=== PATIENT | male | born 1960 | race Caucasian/White ===

== ENCOUNTER 2017-06-01 09:16 | Observation (INO) | payer BC ==
[2017-06-01] VITALS (12 sets, daily range): BP systolic 126–153; BP diastolic 77–102; PULSE 58–75; TEMP 36.4–36.5; O2SAT 95–98; Ht 167.6 cm; Wt 90.8 kg
[~2017-06-01] VITALS: Ht 167.6 cm; Wt 90.8 kg
[2017-06-01] MEDS ORDERED: MIDAZOLAM HCL 1 MG/ML 2ML VIAL ONE (13:43)
[2017-06-01] MEDS ORDERED: HEPARIN SOD (PORCINE) 1000 UNIT/ML 10 ML VIAL ONE ×2 (13:43→15:25)
[2017-06-01] MEDS ORDERED: NiCARDipine HCL INJ 2.5 MG/ML 10 ML AMP ONE (13:43)
[2017-06-01] MEDS ORDERED: FENTANYL CITRATE INJ 50 MCG/1 ML 2 ML VIAL ONE (13:43)
[2017-06-01] MEDS ORDERED: NITROGLYCERIN/D5W 100MCG/ML 20ML SYR ONE (13:44)
--- NOTE | 2017-06-01 15:13 | Procedure Note ---
Pre-Mod Sedation Assessment General Date of Moderate Sedation: Jun 01, 2017. Vital Signs: Vital Signs Past 12 Hours Date Time Temp Pulse Resp B/P (MAP) Pulse Ox O2 Delivery O2 Flow Rate FiO2 06/01/17 09:35 36.5 75 16 153/102 97 Room Air Review Cardiovascular: regular rate, rhythm, no edema, no gallop, no JVD, no murmur Abdomen: normal bowel sounds, non tender, soft Lungs: chest non-tender, lungs clear Pre-Sedation Airway Assessment Oral Cavity: WNL Short Thick Neck: No Hx of Sleep Apnea: No Smoking Status: Never Smoker Mallampati Classification: Class III ASA Classification: Class III Procedure Planning Contraindications-for Mod Sed: None Yes Notes The planned sedation has been discussed with the patient and consent obtained. I have identified the patient, determined the appropriateness of sedation and have assessed the patient immediately prior to the procedure. All medicine(s) and interventions are by my order.
--- NOTE | 2017-06-01 15:14 | History & Physical Bridge Note ---
H&P Re-Evaluation Bridge Note: I have examined the patient, reviewed the History & Physical and in the interval since the performance of the History & Physical I have noted the following changes of clinical significance: No changes noted
--- NOTE | 2017-06-01 15:16 | Procedure Note ---
Post-Mod Sedation Assessment General Date of Moderate Sedation Jun 01, 2017. Vital Signs: Vital Signs Past 12 Hours Date Time Temp Pulse Resp B/P (MAP) Pulse Ox O2 Delivery O2 Flow Rate FiO2 06/01/17 09:35 36.5 75 16 153/102 97 Room Air Review - Discharge Criteria Vital Signs Stable: Yes Alert/Oriented/Conversant: Yes Returned to Baseline Mental St: Yes Nausea Absent/Minimal: Yes Pain/Discomfort/Absent/Minimal: Yes Normal/Baseline Respirations: Yes Active Bleeding?: No Pt Received D/C Instructions: N/A Prescriptions Given: None Specific Proced. D/C Criteria Distal Pulses Present (Cardiac: Yes Groin site assessed-Card Cath: N/A Voided Prior To Discharge: N/A Discharged Patients Adult Escort/Transportation: N/A
[2017-06-01] MEDS ORDERED: CLOPIDOGREL BISULFATE 300 MG TAB PO ONE (15:29)
[2017-06-01] MEDS ORDERED: NITROGLYCERIN 0.4 MG SL PER TAB CHARGE SL PRN (16:00)
[2017-06-01] MEDS ORDERED: ACETAMINOPHEN 325 MG TAB PO PRN (16:00)
[2017-06-01] MEDS ORDERED: IV FLUIDS COMPLETED PRN (16:00)
[2017-06-01] MEDS ORDERED: SODIUM CHLORIDE 0.9% 1000ML 1,000 ML IV SCH (16:00)
--- NOTE | 2017-06-01 16:15 | Cardiac Catheterization ---
Procedure Note Procedure Date Jun 01, 2017. Pre-Procedure Diagnosis Angina, Positive Stress Test, CAD AUC Score 8 Post-Procedure Diagnosis Severe CAD Procedure(s) Performed Coronary Angiography, Left Heart Cath Gas Main Fitter Dr. Garland Morphologist(s) Rob RTR Estimated Blood Loss 8cc Medication(s) Fentanyl, Heparin, Nicardipine, Nitroglycerin, Versed, Lidocaine 1% Summary of Findings 70% LAD in stent restenosis Anuerysmal Lcx segment with 60 -70% stenosis Moderate diffuse RCA stenosis 40% Hemodynamics Rest Ao: 112/69/90 Final Ao: 121/65/88 LV: 121/6/11 Recommendations PCI without planned CABG (Lcx poor target for PCI. Plan to proceed with PCI of LAD. Medical management of Lcx. Consider intervention with recurrent symptoms. ) Specimens None Radiation Exposure (mGy) 1837 Contrast (mls) 65 Procedural Complication(s) None Disposition tag and label cutter for PCI LAD ACC Data Cardiac Status Clinical evaluation leading to the procedure CAD Presntation: Positive Stress Test Anginal Classification: CCS III Heart Failure: No Cardiogenic Shock w/in 24Hrs: No Cardiac Arrest w/in 24Hrs: No Imaging studies past 6 months: Yes Stress studies past 6 months: Yes Standard Exercise Stress Test: No Stress Echocardiogram: Yes - Positive, Risk/Extent of Ischemia (Intermediate) Stress Testing w/SPECT MPI: No Cardiac CTA: No Coronary Anatomy Dominant: Right Left Main (% Stenosis): Normal LAD (% Stenosis): Proximal (70% in stent restenosis) Circumflex (% Stenosis): Proximal (50% proximal followed by aneurysmal segment) , Mid (aneurysmal segment followed by 60 - 70% stenosis) OM1 (% Stenosis): Ostial (20%), Proximal (20%), Mid (30%), Distal (10%) OM2 (% Stenosis): Proximal (50%) L PL1 (% Stenosis): Proximal (10%), Mid (10%), Distal (10%) L PL2 (% Stenosis): Proximal (10%) RCA (% Stenosis): Proximal (30%), Mid (diffuse moderate disease, 40%), Distal ( 30%) R PDA (% Stenosis): Proximal (10%), Mid (20%) R PL1 (% Stenosis): Normal Closure Device Percutaneous Entry Location: Radial Closure Device: Radial Band Intraprocedure Events Significant Dissection: No Perforation: No
[2017-06-01] MEDS ORDERED: VNTHFA/IN INH (16:26)
[2017-06-01] MEDS ORDERED: METO50TA16 PO (16:26)
[2017-06-01] MEDS ORDERED: OMEG10002 PO (16:26)
[2017-06-01] MEDS ORDERED: LISI10TA PO (16:26)
[2017-06-01] MEDS ORDERED: ATOR-26 PO (16:26)
[2017-06-01] MEDS ORDERED: ALBUTEROL HFA 8 GM INHALER INH PRN (17:45)
--- NOTE | 2017-06-01 18:34 | Cardiac Catheterization ---
Procedure Note Procedure Date Jun 01, 2017. Pre-Procedure Diagnosis Positive Stress Test AUC Score 7 Post-Procedure Diagnosis Severe CAD, Successful PCI Procedure(s) Performed Drug Eluting Stent Vat Operator Daniel Plant Floor Automation Manager(s) Rob Estimated Blood Loss 15 Medication(s) Fentanyl, Heparin, Nitroglycerin, Versed Summary of Findings Indication: CCS III angina despite medical therapy/Positive stress test Access: 6Fr Right Radial Artery Catheters: EBU 3.5 guide Findings: For full details of coronary angiography please cath report dictated by Dr. Garland. Briefly patient found to have severe in-stent restenosis in prior proximal to mid LAD stent. Proceeded to PCI in the setting of anterior wall ischemia on recent stress. -- PCI -- Antithrombotic therapy: Heparin, Clopidogrel Procedure: LM cannulated with EBU 3.5 guide BMW wire passed across lesion into distal vessel Proximal-mid LAD instent lesion predilated with 3.0 compliant balloon Proximal and most distal aspect of stent dilated with 3.0 cutting balloon after segments didn't fully expand with compliant balloon. 3.5 x 33 Xience placed inside previous stent. Stent post-dilated with 4.0 noncompliant balloon IC vasodilators administered for spasm Post procedure BRANDO 3 flow, stent well expanded with minimal residual stenosis and no apparent cardiac complications. Arterial Closure: TR Band Summary: 1. Successful PCI of proximal-mid LAD in-stent restenosis with one overlapping drug-eluting stent (3.5 x 33 Xience, post-dilated to 4.0) Recommendations: To PCU for continued monitoring Reloaded with 300 mg Clopidogrel in lab intern Continue dual-antiplatelet therapy with ASA/Clopidogrel for 1 year, consider extended therapy with overlapping stents Continue statin, ASCVD risk factor modification per Dr. Garland Consult cardiac Rehab Hemodynamics Rest Ao: 112/69/90 Final Ao: 136/67/77 LV: 121/11 Recommendations PCI without planned CABG Specimens None Radiation Exposure (mGy) 3582 Contrast (mls) 135 Opti Fluids (cc crystalloids) 69 Drains None Anesthesia Moderate Procedural Complication(s) None Disposition PCU ACC Data Cardiac Status Clinical evaluation leading to the procedure CAD Presntation: Positive Stress Test Anginal Classification: CCS III Heart Failure: No, NYHA Class: CCS I Cardiogenic Shock w/in 24Hrs: No Cardiac Arrest w/in 24Hrs: No Imaging studies past 6 months: Yes Stress Echocardiogram: Yes - Positive, Risk/Extent of Ischemia (Intermediate) Diagnostic Physician's Name: Kyree Garland DO Status: Elective Closure Device Percutaneous Entry Location: Radial Closure Device: Radial Band Recommendations: PCI without planned CABG PCI Indication: + Stress Test Lesion Segment Name: Proximal-mid LAD Culprit Artery: Yes Stenosis Prior to Rx (%): 70-80 Chronic Total Occlusion: No IVUS: No FFR: No Pre-Procedure BRANDO Flow: 3 Previously Treated Lesion: Yes Treated Lesion: Timeframe: greater than 2 years Treated with Stent: Yes In-Stent Restenosis: Yes In-Stent Thrombosis: No Stent Type: Non-DARRELL Lesion Complexity: High/C Lesion Length (mm): 30 Thrombus Present: No Bifurcation Lesion: No Guidewire Across Lesion: Yes Guidewire: Stenosis Post-Procedure (%): 0 Post-Procedure BRANDO Flow: 3 Device(s) Deployed: Yes Intraprocedure Events Significant Dissection: No Perforation: No
[2017-06-01] MEDS ORDERED: NURSING VERBAL MED ORDER ONE (20:00)
[2017-06-01] MEDS: METOPROLOL TARTRATE 50 MG TAB PO SCH (20:06)
[2017-06-01] MEDS ORDERED: ATORVASTATIN 40 MG TAB PO SCH (21:00)
[2017-06-02] VITALS: BP 124/85; PULSE 75; TEMP 36.6; O2SAT 97
[2017-06-02 04:00] VITALS: BP 118/73; PULSE 62; TEMP 37; O2SAT 96
[2017-06-02 06:34] LABS: BASO % 0.7 %; BASO ABS # 0.05 K/uL (0-0.2); COMPLETE YES; EOS % 13.5 %; IG% 0.1 %; LYMPH % 25.2 %; MEAN CELL VOLUME 91.5 fL (80-100); MEAN CORPUSCULAR HEMOGLOBIN 30.7 pg (25-34); MEAN CORPUSCULAR HGB CONC 33.6 g/dl (32-36); MEAN PLATELET VOLUME 9.5 fL (7.4-10.4); MONO % 8.9 %; NEUT % 51.6 %; PLATELET COUNT 269 K/uL (130-400); RED BLOOD COUNT 4.59 M/uL (4.7-6.1); WHITE BLOOD COUNT 7.54 K/uL (4.8-10.8)
[2017-06-02 07:17] LABS: BUN/CREATININE RATIO 18.3 (10-20); CALCIUM 8.6 mg/dl (8.5-10.1); CREATININE 0.89 mg/dl (0.60-1.40); POTASSIUM 4.3 mmol/L (3.5-5.1)
[2017-06-02 07:19] VITALS: BP 126/77; PULSE 64; TEMP 36.5; O2SAT 96
[2017-06-02] MEDS: METOPROLOL TARTRATE 50 MG TAB PO SCH (08:06)
[2017-06-02] MEDS ORDERED: OMEGA-3 (PURIFIED FISH OIL) 1 GM CAP PO SCH (09:00)
[2017-06-02] MEDS ORDERED: ATORVASTATIN 40 MG TAB PO SCH (09:00)
[2017-06-02] MEDS ORDERED: LISINOPRIL 10 MG TAB PO SCH (09:00)
[2017-06-02] MEDS ORDERED: CLOPIDOGREL BISULFATE 75 MG TAB PO SCH (09:00)
[2017-06-02] MEDS ORDERED: ASPIRIN 81 MG ECTAB PO SCH (09:00)
[2017-06-02] MEDS ORDERED: PLV75 PO (09:34)
[2017-06-02] MEDS ORDERED: ASPEC81 PO (09:34)
[2017-06-02] MEDS ORDERED: NTRSLP4 SL (09:34)
--- NOTE | 2017-06-02 09:37 | Discharge Instructions ---
Discharge Instructions Procedure Procedure Date: Jun 02, 2017. Reason for Visit: CAD. Discharge Discharge Date: Jun 02, 2017. Discharge Diagnosis: Coronary artey disease s/p drug eluting stent implantation to Left anterior descending artery Last Recorded Wt (Kilograms): 90.800 Anesthesia Post Anesthesia Instructions: If you have had General Anesthesia or IV Sedation: * Do not drive today. * Resume driving when surgeon permits. * Do not make important decisions or sign legal documents today. * Call surgeon for: 1. Temperature elevations greater than 101 degrees F. 2. Uncontrollable pain. 3. Excessive bleeding. 4. Persistent nausea and vomiting. 5. Medication intolerance (nausea, vomiting or rash). * For nausea and vomiting use only clear liquids such as: tea, soda, bouillon until nausea subsides, then gradually increase diet as tolerated. * If you have any concerns or questions, call your surgeon's office. If physician is unavailable and it is an emergency, call 911 or go to the nearest emergency room. Instructions Activity Recommendations: limitations as noted below Return to School/Work: with the following limitations (Patient may return to work without restriction on 06/12/2017) Recommended Home Diet: resume previous diet Allergies: Coded Allergies: No Known Allergies (Unverified , 06/01/17) Provider Instructions ACTIVITY RECOMMENDATIONS: It is common to feel weak and fatigue for a few days. * Do not drive or operate any motorized equipment for the next three days. * Limit stair usage (2 or 3 trips a day only) for the next three days. * Do not lift anything heavier than 10 pounds for the next three days. * Do not engage in vigorous exercise or any sports for the next five days. * You may shower the day after your procedure, but do not immerse the area for three days. Cleanse the site gently with soap and water. SPECIAL CARE INSTRUCTIONS: * You may replace the pressure dressing or band-aid the morning after the procedure. * After your procedure, it is normal to have a small bruise or small lump at the site. Examine your site daily for any change in the bruise or lump, redness, swelling, drainage or numbness. Notify your doctor if any change. BLEEDING: * If there is a small amount of bleeding at the site, lie down and apply firm pressure with a clean cloth for ten minutes. When the bleeding stops, lie quietly keeping the procedure limb straight for six hours. Notify your doctor as soon as possible. * If the bleeding does not stop after ten minutes or if there is a large amount of bleeding or spurting, call 911 immediately. Continue to lie down and hold firm pressure until help arrives. SKIN IRRITATION: * You may experience some redness and/or swelling in the area where radiation was administered. If any skin irritation occurs, please contact your family physician. FOLLOW UP VISIT: Keep any scheduled doctor appointments. Follow Up Follow-up with: Dr. Garland as scheduled [facility] Recommendations: Call your doctor if: * Temperature above 101 degrees * Pain not relieved by pain medicine ordered * There is increased drainage or redness from any incision * You have any unanswered questions or concerns. Your Doctors Instructions noted above were prepared by provider Kyree Garland. Patient Signature Section: Patient Instructions Signature Page Austyn Petty Patient (or Guardian) Signature/Date: I have read and understand the instructions given to me by my caregivers. Caregiver/RN/Doctor Signature/Date: The above-named patient and/or guardian has received patient instructions on this date. + Original Patient Signature Page (only) stays with chart. Please make copy for patient.
[2017-06-02 09:41] VITALS: BP 126/77; PULSE 64; TEMP 36.5; O2SAT 96
--- NOTE | 2017-06-02 10:00 | CARDIOLOGY PROGRESS NOTE ---
DATE: 06/02/2017 DATE: 06/02/2017 SUBJECTIVE: Mr. Petty seen and examined at the bedside. Feeling well overnight. No dysrhythmias on telemetry. No recurrent chest discomfort or shortness of breath. Feeling well and requesting discharge. Tolerating diet and medications. No hematoma. His TR band removed without complication. Drug-eluting stent implanted to the left anterior descending artery on 06/01/2017. REVIEW OF SYSTEMS: Pertinent positives noted above, 3 system review including cardiovascular, pulmonary, gastroenterologic systems otherwise negative. LABORATORY DATA: White blood cell count 7.54, hemoglobin 14.1, platelet count 269. Sodium 139, potassium 4.3, chloride 109, CO2 is 26, BUN is 16, creatinine is 0.89, calcium is 8.6. Telemetry demonstrates sinus rhythm, sinus bradycardia. PHYSICAL EXAMINATION: VITAL SIGNS: Temperature is 36.5 degrees centigrade, pulse 64 beats per minute and regular, respiratory rate 20 breaths per minute, blood pressure 126/77. SaO2 is 96% on room air. GENERAL: NAD, awake, alert and oriented x3. HEAD, EYES, EARS, NOSE, AND THROAT: Mucous membranes are moist. No scleral icterus. Conjunctivae are pink. NECK: Supple without JVD. No HJR. No carotid bruit. HEART: Regular with a normal S1 and S2. No murmur, rub or gallop. LUNGS: Clear without rales, rhonchi or wheeze. ABDOMEN: Soft, nontender. No rebound or guarding. Normal bowel sounds. EXTREMITIES: Warm and dry. No clubbing, cyanosis or edema. NEUROLOGIC EXAMINATION: Demonstrates no focal deficit. The right radial catheterization site is clean, dry and intact. No hematoma or ecchymosis. FINAL IMPRESSION: 1. Exertional angina, abnormal stress testing suggesting anterior ischemia, status post diagnostic catheterization and drug-eluting stent implantation to the early mid LAD. Catheterization demonstrated 70% in-stent restenosis of the previously implanted bare metal stenting from 2007. Residual moderate to severe Lcx and moderate RCA disease noted. Decision was made to intervene on LAD due presence of ischemia in the septum and apex on stress imaging. The Lcx and RCA will be managed medically at this time. I would consider further evaluation or intervention in the future with recurrent symptoms. 2. Dyslipidemia. 3. Hypertension. PLAN AND RECOMMENDATIONS: The patient will continue Plavix for a minimum of 1 year post-PCI and aspirin lifelong. Other cardiovascular medications will be continued as ordered prior to hospitalization including high dose statin therapy, beta eddie, and SL nitro. Post-catheterization activity restrictions reviewed. He will be discharged to home today. Cardiology followup scheduled for 06/09/2017. VEE
--- NOTE | 2017-06-03 01:47 | DISCHARGE SUMMARY ---
ADMISSION DIAGNOSES: 1. Exertional angina. 2. Abnormal exercise stress echo, suggesting anterior ischemia. 3. Dyslipidemia. 4. Hypertension. 5. History of coronary artery disease with prior bare-metal stenting to left anterior descending artery. DISCHARGE DIAGNOSES: 1. Status post drug eluting stent implantation to the left anterior descending artery. 2. Residual moderate to severe circumflex as well as moderate right coronary artery disease noted. 3. Dyslipidemia. 4. Hypertension. ADMISSION MEDICATIONS: 1. Aspirin 81 mg a day. 2. Plavix 75 mg a day. 3. Lipitor 80 mg a day. 4. Lisinopril 10 mg a day. 5. Metoprolol tartrate 50 mg twice daily. 6. Sublingual nitroglycerin as needed. DISCHARGE MEDICATIONS: Unchanged. CONSULTATIONS DURING HOSPITALIZATION: Dr. Sandro Sanchez, interventional cardiology. PROCEDURES DURING HOSPITALIZATION: 1. Left heart catheterization with coronary angiography. 2. Percutaneous intervention with drug-eluting stent implantation to the left anterior descending artery. HOSPITAL COURSE: The patient was electively admitted on 06/01/2017 for left heart catheterization with coronary angiography. The results of that study are under separate cover. The patient was brought to the concrete mixing plant laborer in the usual fasting state. Procedure was performed due to an abnormal exercise stress echo demonstrating septal and apical ischemia. The angiography demonstrated severe in-stent restenosis with moderate to severe circumflex as well as moderate right coronary artery disease. Decision was made to proceed with intervention to left anterior descending artery as this was the artery with ischemia noted during stress testing. The remaining CAD was managed medically. Procedure was performed without complication. The patient discharged to home on 06/02/2017. He is scheduled for a cardiology followup in 1 week.
== END 2017-06-02 10:29 | disposition home or self-care (01) ==
LOC: C.CATH 09:16 → ENRESERV 15:03 → C.2E 15:51
PROVIDERS: ADMIT Internal Medicine Cardiovascular Disease; ATTEND Internal Medicine Cardiovascular Disease
DX: I25.10 Atherosclerotic heart disease of native coronary artery without angina pectoris (principal); I25.2 Old myocardial infarction; I72.8 Aneurysm of other specified arteries; E78.5 Hyperlipidemia, unspecified; N52.9 Male erectile dysfunction, unspecified; Z80.0 Family history of malignant neoplasm of digestive organs; Z98.62 Peripheral vascular angioplasty status; Z82.49 Family history of ischemic heart disease and other diseases of the circulatory system; F41.1 Generalized anxiety disorder; Z90.89 Acquired absence of other organs; Z83.3 Family history of diabetes mellitus; Z82.3 Family history of stroke; Z79.82 Long term (current) use of aspirin; Z95.818 Presence of other cardiac implants and grafts; Z79.02 Long term (current) use of antithrombotics/antiplatelets